=== PATIENT | female | born 1945 | race Hispanic/Latino ===

== ENCOUNTER 2017-09-01 16:21 | Inpatient (IN) | payer MEDICARE, MEDICAID ==
[2017-09-01 17:50] VITALS: BMI 48.4
--- NOTE | 2017-09-01 18:17 | C.PDOC ---
History Of Present Illness 72 y/o F sent from [facility] for further evaluation of intractible diarrhea. Patient states she has been having diarrhea for over 1 year. Patient denies fever, vomiting, or abdominal pain. Patient also notes rash to her back and skin fold areas. Denies tenderness to these areas. Time Seen by Provider: 09/01/17 16:42 Chief Complaint (Nursing): GI Problem Past Medical History Vital Signs: Last Vital Signs Temp 98.7 F 09/01/17 16:26 Pulse 69 09/01/17 16:26 Resp 18 09/01/17 16:26 BP 146/82 09/01/17 16:26 Pulse Ox 95 09/01/17 18:20 - Medical History PMH: COPD, Depression, Gastrointestinal Ulcer, HTN Family History: States: No Known Family Hx - Social History Hx Alcohol Use: No Hx Substance Use: No - Immunization History Hx Influenza Vaccination: No Hx Pneumococcal Vaccination: No Review Of Systems Except As Marked, All Systems Reviewed And Found Negative. Constitutional: Negative for: Fever Cardiovascular: Negative for: Chest Pain Physical Exam - Physical Exam Additional Physical Exam Comments: Gen: NAD Head: AT Eyes: PERRL ENT: MMM Neck: No midline tenderness Chest: No tenderness CV: Regular rate Lungs: CTA b/l Abd: Soft, nontender, morbid obesity Extremities: FROM Skin: Scatter erythematous papules and plaques to back and folds Neuro: Alert, no focal deficit ED Course And Treatment - Laboratory Results Result Diagrams: 09/01/17 18:29 O2 Sat by Pulse Oximetry: 95 Medical Decision Making Medical Decision Making: EKG NSR 74 bpm, no ST/T wave changes Dr. Montilla accepts patient to his service. Recommends Dr. Sharpe for GI consultation. When obtaining urine through straight catheterization, RN found patient to have vaginal bleeding, which patient states she knew she had but did not bring to attention of physician. Will check Hb. Vitals normal. In absence of , no emergent indication for further evaluation in ED, will defer to inpatient. Disposition Discussed With : Nasima Montilla Doctor Will See Patient In The: Hospital - Disposition Disposition: HOSPITALIZED Disposition Time: 18:55 Condition: FAIR Forms: [facility] (Greek) - Clinical Impression Clinical Impression: Intractable diarrhea, Rash, Vaginal bleeding
[2017-09-01 18:35] LABS: RBC URINE 199 /hpf (0-3); URINE BACTERIA FEW (<OCC); URINE BILIRUBIN NEGATIVE (NEGATIVE); URINE BLOOD 3+ (NEGATIVE); URINE COLOR Yellow (YELLOW); URINE GLUCOSE (UA) NORMAL (Normal); URINE KETONE NEGATIVE (NEGATIVE); URINE LEUKOCYTE ESTERASE 1+ Leu/uL (Negative); URINE PROTEIN 1+ mg/dL (NEGATIVE); URINE UROBILINOGEN NORMAL mg/dL (0.2-1.0); WBC URINE 18 /hpf (0-5)
[2017-09-01 18:43] LABS: BASO # 0.1 K/uL (0.0-0.2); BASO % 0.7 % (0.0-2.0); EOS # 0.6 K/uL (0.0-0.7); EOS % 5.3 % (0.0-4.0); HEMATOCRIT 39.2 % (34.0-47.0); LYMPH # 4.1 K/uL (1.0-4.3); MEAN PLATELET VOLUME 8.9 fL (7.2-11.7); MONO # 0.6 K/uL (0.0-0.8); RED CELL DISTRIBUTION WIDTH 15.9 % (11.5-14.5); WHITE BLOOD COUNT 11.8 K/uL (4.8-10.8)
[2017-09-01 19:04] LABS: ALB/GLOB RATIO 1.4 (1.0-2.1); ALKALINE PHOSPHATASE 89 U/L (38-126); ALT/SGPT 51 U/L (9-52); AST/SGOT 38 U/L (14-36); BILIRUBIN,TOTAL 0.6 mg/dL (0.2-1.3); BLOOD UREA NITROGEN 21 mg/dL (7-17); CALCIUM 8.6 mg/dl (8.6-10.4); CARBON DIOXIDE 28 mmol/L (22-30); CHLORIDE 99 mmol/L (98-107); GFR AFRICAN-AMERICAN > 60; GLUCOSE,RANDOM 138 mg/dL (65-105); SODIUM 135 mmol/L (132-148); TOTAL PROTEIN 7.1 g/dL (6.3-8.3)
[2017-09-01 20:52] VITALS: RESP 20
[2017-09-01] MEDS ORDERED: Atropine-Diphenoxylate 0.025-2.5 mg Tab PO PRN (21:16)
[2017-09-01] MEDS ORDERED: Home Med 1 UNIT (Oxycodone Hcl/Acetaminophen [Percocet 10-325 Mg Tablet] 1 EACH) PO PRN (21:17)
[2017-09-01 21:20] VITALS: O2SAT 95
[2017-09-01] MEDS ORDERED: Latanoprost 2.5 ml Opht Soln OU SCH (22:00)
[2017-09-01] MEDS: Oxycodone/Acetaminophen 5/325 mg Tab PO PRN (22:05)
[2017-09-01] MEDS: Sodium Chloride 0.45% 1,000 ML IV SCH (22:09)
[2017-09-02] MEDS: metroNIDAZOLE IV 500 mg/100 ml 500 MG/100 ML BAG IVPB SCH ×3 (00:32→14:28)
[2017-09-02] MEDS: Oxycodone/Acetaminophen 5/325 mg Tab PO PRN ×2 (05:51→17:35)
[2017-09-02 08:06] VITALS: PULSE 72
--- NOTE | 2017-09-02 08:41 | RAD ---
HISTORY: diarrhea COMPARISON: No prior. FINDINGS: LUNGS: Right central venous catheter tip extending to the cavoatrial junction. Mild venous congestion. Patchy increased markings at the lung bases. Focal opacification at the left lung base which may represent underlying atelectasis versus infiltrate versus prominent epicardial fat pad. Correlation with lateral view may be helpful. Right hilar prominence. PLEURA: As above. CARDIOVASCULAR: Enlarged ectatic aorta. Cardiomegaly. OSSEOUS STRUCTURES: Degenerative changes in the spine and shoulders. VISUALIZED UPPER ABDOMEN: Normal. OTHER FINDINGS: None. IMPRESSION: Right central venous catheter tip extending to the cavoatrial junction. Mild venous congestion. Patchy increased markings at the lung bases. Focal opacification at the left lung base which may represent underlying atelectasis versus infiltrate versus prominent epicardial fat pad. Correlation with lateral view may be helpful. Right hilar prominence.
[2017-09-02] MEDS ORDERED: Iohexol 240 (50 ml) PO ONE (08:45)
[2017-09-02] MEDS: Lactobacillus Acidophilus 500 MU Cap PO SCH ×3 (09:35→17:25)
[2017-09-02] MEDS: Sodium Chloride 0.45% 1,000 ML IV SCH (09:55)
[2017-09-02] MEDS ORDERED: Enoxaparin 40 mg Syringe SC SCH (10:00)
[2017-09-02] MEDS ORDERED: ACIDOPH PO SCH (10:00)
[2017-09-02] MEDS ORDERED: Acyclovir 5% Oint (15 gm) TOP SCH (10:00)
[2017-09-02] MEDS ORDERED: BULG PO SCH (10:00)
[2017-09-02] MEDS ORDERED: BIF B PO SCH (10:00)
[2017-09-02] MEDS ORDERED: Brimonidine 0.2% Opth Sol (5ml) OS SCH (10:00)
[2017-09-02] MEDS ORDERED: S THERMOP PO SCH (10:00)
[2017-09-02] MEDS ORDERED: Home Med 1 UNIT (Brimonidine 0.15% [Alphagan P 0.15% Opht] 1 DROP) AS SCH (10:00)
[2017-09-02 11:42] LABS: BASO # 0.1 K/uL (0.0-0.2); BASO % 0.7 % (0.0-2.0); EOS # 0.6 K/uL (0.0-0.7); EOS % 5.7 % (0.0-4.0); HEMATOCRIT 38.7 % (34.0-47.0); LYMPH # 2.7 K/uL (1.0-4.3); MEAN CELL VOLUME 74.2 fL (81.0-99.0); MEAN CORPUSCULAR HEMOGLOBIN 24.5 pg (27.0-31.0); MEAN PLATELET VOLUME 9.1 fL (7.2-11.7); MONO # 0.6 K/uL (0.0-0.8); MONO % 6.1 % (0.0-10.0); NRBC % 0.3 % (0.0-2.0); RED CELL DISTRIBUTION WIDTH 16.1 % (11.5-14.5); WHITE BLOOD COUNT 9.8 K/uL (4.8-10.8)
[2017-09-02 12:01] LABS: ALB/GLOB RATIO 1.1 (1.0-2.1); ALKALINE PHOSPHATASE 84 U/L (38-126); ALT/SGPT 48 U/L (9-52); AST/SGOT 46 U/L (14-36); BILIRUBIN,TOTAL 0.4 mg/dL (0.2-1.3); BLOOD UREA NITROGEN 18 mg/dL (7-17); CALCIUM 8.3 mg/dl (8.6-10.4); CARBON DIOXIDE 26 mmol/L (22-30); CHLORIDE 98 mmol/L (98-107); GFR AFRICAN-AMERICAN > 60; GLUCOSE,RANDOM 161 mg/dL (65-105); MAGNESIUM 1.4 mg/dL (1.6-2.3); PHOSPHOROUS 3.4 mg/dL (2.5-4.5); POTASSIUM 4.2 mmol/L (3.6-5.2); SODIUM 135 mmol/L (132-148); TOTAL PROTEIN 7.6 g/dL (6.3-8.3)
--- NOTE | 2017-09-02 13:34 | CP.PCM.PN ---
Subjective - Date & Time of Evaluation Date of Evaluation: 09/02/17 Time of Evaluation: 13:30 - Subjective Subjective: Progress note. Attending: Dr. Montilla This is a 72 yo female with past medical hx of anxiety and DM [facility] with chief complaint of diarrhea x 1 year. Pt has been having intractable diarrhea x 1 year. It has been non bloody. No fevers or chills. She is also reporting some vaginal bleeding. She cannot say for how long. Pt seen and examined at bedside today. No acute distress. Actually says her diarrhea has now resolved since being here. No fevers, chills, vomiting. PMH: Anxiety, DM PSH: C section, ex lap Allergies: PCN FH: Skin cancer, lung cancer Social hx: Denies smoking, drinking, drug use. Born in . Lives in [facility]. Objective - Vital Signs/Intake and Output Vital Signs (last 24 hours): Temp Pulse Resp BP Pulse Ox 98.1 F 72 20 134/83 95 09/02/17 08:04 09/02/17 08:04 09/02/17 08:04 09/02/17 08:04 09/02/17 08:04 Intake and Output: 09/02/17 09/02/17 06:59 18:59 Intake Total 730 Balance 730 - Medications Medications: Current Medications Acetaminophen (Tylenol 325mg Tab) 650 mg PO Q4 PRN PRN Reason: temp 101 & above/mild pain Acyclovir (Zovirax 5% Oint) 0 gm TOP DAILY [facility] Last Admin: 09/02/17 10:08 Dose: 1 applic Alprazolam (Xanax) 0.5 mg PO HS [facility] Last Admin: 09/01/17 22:04 Dose: 0.5 mg Baclofen (Lioresal) 10 mg PO TID [facility] Last Admin: 09/02/17 09:35 Dose: 10 mg Bisacodyl (Dulcolax) 10 mg PO ONCE ONE Stop: 09/02/17 17:01 Brimonidine Tartrate (Alphagan 0.2% Opht) 0 ml OS Q12 [facility] Last Admin: 09/02/17 09:52 Dose: 1 drop Diphenoxylate HCl/Atropine (Lomotil 0.025-2.5 Mg Tablet) 1 tab PO Q12 PRN PRN Reason: Diarrhea Enoxaparin Sodium (Lovenox) 40 mg SC DAILY [facility] Last Admin: 09/02/17 09:34 Dose: 40 mg Gabapentin (Neurontin) 300 mg PO HS [facility] Last Admin: 09/01/17 22:03 Dose: 300 mg Sodium Chloride (Sodium Chloride 0.45%) 1,000 mls @ 80 mls/hr IV .[id number] [facility] Last Admin: 09/02/17 09:55 Dose: Not Given Metronidazole (Flagyl) 500 mg in 100 mls @ 100 mls/hr IVPB Q8 [facility] Last Admin: 09/02/17 05:53 Dose: 100 mls/hr Lactobacillus Acidophilus (Bacid Acidophilus) 1 cap PO TID [facility] Last Admin: 09/02/17 09:35 Dose: 1 cap Latanoprost (Xalatan Opht) 0.05 ml OU HS [facility] Last Admin: 09/01/17 22:04 Dose: 0.05 ml Metformin HCl (Glucophage) 500 mg PO BID [facility] Last Admin: 09/02/17 09:34 Dose: 500 mg Metoclopramide HCl (Reglan) 5 mg IVP Q6 [facility] Last Admin: 09/02/17 12:29 Dose: 5 mg Oxycodone/Acetaminophen (Percocet 5/325 Mg Tab) 1 tab PO Q8 PRN PRN Reason: knee pain Last Admin: 09/02/17 05:51 Dose: 1 tab Pantoprazole Sodium (Protonix Inj) 40 mg IVP DAILY [facility] Last Admin: 09/02/17 09:34 Dose: 40 mg Pneumococcal Polyvalent Vaccine (Pneumovax 23 Vaccine) 0.5 ml IM .ONCE ONE Stop: 09/03/17 10:01 Polyethylene Glycol/Electrolytes (Golytely) 4,000 ml PO ONCE ONE Stop: 09/02/17 14:01 Sertraline HCl (Zoloft) 50 mg PO DAILY [facility] Last Admin: 09/02/17 09:34 Dose: 50 mg Ursodiol (Actigall) 300 mg PO BID [facility] Last Admin: 09/02/17 09:35 Dose: 300 mg - Labs Labs: 09/02/17 11:18 09/02/17 11:18 - Constitutional Appears: Non-toxic, No Acute Distress - Head Exam Head Exam: ATRAUMATIC, NORMAL INSPECTION, NORMOCEPHALIC - Eye Exam Eye Exam: EOMI - ENT Exam ENT Exam: Mucous Membranes Moist - Neck Exam Neck Exam: Full ROM, Normal Inspection - Respiratory Exam Respiratory Exam: NORMAL BREATHING PATTERN. absent: Respiratory Distress - Cardiovascular Exam Cardiovascular Exam: +S1, +S2 - GI/Abdominal Exam GI & Abdominal Exam: Hernia. absent: Guarding, Rigid - Extremities Exam Extremities Exam: Full ROM, Normal Inspection - Neurological Exam Neurological Exam: Alert, Awake, Oriented x3 - Psychiatric Exam Psychiatric exam: Normal Affect, Normal Mood - Skin Skin Exam: Dry, Intact, Normal Color, Warm Assessment and Plan - Assessment and Plan (Free Text) Assessment: This is a 72 yo female with past medical hx of anxiety and DM with 1. Diarrhea -stool ova and parasites -stool culture -stool leukocytes -stool c diff -continue tylenol -continue diphenoxylate 1 tab PO 12 -continue metronidazole 500 mg IV q 8 -ct scan of abdomen pelvis ordered and is pending -GI consult. Dr. Sharpe. recs appreciated. -continue reglan IV q 6 hrs prn nausea. 2. Vaginal bleeding -post menopausal -[employer] consult. recs appreciated. Dr. Simpson 3. Hx of anxiety/depression. -continue xanax .5 PO HS -continue sertraline 50 mg daily 4. hx of DM -continue gabapentin 300 PO HS -continue metformin 500 PO BID 5. GI/DVT ppx -lovenox -protonix [address] Montilla
[2017-09-02] MEDS ORDERED: Peg-Electrolyte Oral Soln 4L (Golytely) PO ONE (14:00)
--- NOTE | 2017-09-02 16:14 | CP.PCM.PN ---
Subjective - Date & Time of Evaluation Date of Evaluation: 09/02/17 Time of Evaluation: 16:14 - Subjective Subjective: Alert, orientedx3, denies abdominal pain or any acute distress. Objective - Vital Signs/Intake and Output Vital Signs (last 24 hours): Temp Pulse Resp BP Pulse Ox 98.1 F 72 20 134/83 95 09/02/17 08:04 09/02/17 08:04 09/02/17 08:04 09/02/17 08:04 09/02/17 08:04 Intake and Output: 09/02/17 09/02/17 06:59 18:59 Intake Total 730 1180 Balance 730 1180 - Medications Medications: Current Medications Acetaminophen (Tylenol 325mg Tab) 650 mg PO Q4 PRN PRN Reason: temp 101 & above/mild pain Acyclovir (Zovirax 5% Oint) 0 gm TOP DAILY [facility] Last Admin: 09/02/17 10:08 Dose: 1 applic Alprazolam (Xanax) 0.5 mg PO HS [facility] Last Admin: 09/01/17 22:04 Dose: 0.5 mg Baclofen (Lioresal) 10 mg PO TID [facility] Last Admin: 09/02/17 14:28 Dose: 10 mg Bisacodyl (Dulcolax) 10 mg PO ONCE ONE Stop: 09/02/17 17:01 Brimonidine Tartrate (Alphagan 0.2% Opht) 0 ml OS Q12 [facility] Last Admin: 09/02/17 09:52 Dose: 1 drop Diphenoxylate HCl/Atropine (Lomotil 0.025-2.5 Mg Tablet) 1 tab PO Q12 PRN PRN Reason: Diarrhea Enoxaparin Sodium (Lovenox) 40 mg SC DAILY [facility] Last Admin: 09/02/17 09:34 Dose: 40 mg Gabapentin (Neurontin) 300 mg PO HS [facility] Last Admin: 09/01/17 22:03 Dose: 300 mg Sodium Chloride (Sodium Chloride 0.45%) 1,000 mls @ 80 mls/hr IV .[id number] [facility] Last Admin: 09/02/17 09:55 Dose: Not Given Metronidazole (Flagyl) 500 mg in 100 mls @ 100 mls/hr IVPB Q8 [facility] Last Admin: 09/02/17 14:28 Dose: 100 mls/hr Lactobacillus Acidophilus (Bacid Acidophilus) 1 cap PO TID [facility] Last Admin: 09/02/17 14:28 Dose: 1 cap Latanoprost (Xalatan Opht) 0.05 ml OU HS [facility] Last Admin: 09/01/17 22:04 Dose: 0.05 ml Metformin HCl (Glucophage) 500 mg PO BID [facility] Last Admin: 09/02/17 09:34 Dose: 500 mg Metoclopramide HCl (Reglan) 5 mg IVP Q6 [facility] Last Admin: 09/02/17 12:29 Dose: 5 mg Oxycodone/Acetaminophen (Percocet 5/325 Mg Tab) 1 tab PO Q8 PRN PRN Reason: knee pain Last Admin: 09/02/17 05:51 Dose: 1 tab Pantoprazole Sodium (Protonix Inj) 40 mg IVP DAILY [facility] Last Admin: 09/02/17 09:34 Dose: 40 mg Pneumococcal Polyvalent Vaccine (Pneumovax 23 Vaccine) 0.5 ml IM .ONCE ONE Stop: 09/03/17 10:01 Sertraline HCl (Zoloft) 50 mg PO DAILY [facility] Last Admin: 09/02/17 09:34 Dose: 50 mg Ursodiol (Actigall) 300 mg PO BID [facility] Last Admin: 09/02/17 09:35 Dose: 300 mg - Labs Labs: 09/02/17 11:18 09/02/17 11:18 Assessment and Plan - Assessment and Plan (Free Text) Assessment: 72 year old obese female with multiple complaints, seen and examined. She expressed that she do not want colonoscopy done as advised by DR Sharpe. No acute pain vomiting or distress. D/W DR Montilla, plan to discharge back to [facility] as per patient request. Added lomotil prn for diarrhea.
[2017-09-02 16:46] VITALS: BP 155/63; TEMP 98.5
[2017-09-02] MEDS ORDERED: Bisacodyl 5mg EC Tab PO ONE (17:00)
--- NOTE | 2017-09-02 17:52 | PN ---
LOCATION: [facility], bed B. SUBJECTIVE: This is 72-year-old female, seen and examined for GI consultation initially on 09/01/2017 as requested by the admitting medical team. Reexamined again today with intermittent period of rectal bleeding verses, less likely vaginal bleeding. The patient is not sure about the source of active bleeding with episode of crampy abdominal pain and dyspepsia with recurrent severe diarrhea. No reported chest pain, palpitation or significant other clinical changes. Initially, the patient was examined for upper and lower endoscopy then she changed her mind and she is refusing EGD and colonoscopy. The entire chart is reviewed including but not limited to the most recent lab and radiology study results, current and previous medication lists, current and previous medical events and today's labs showed normal CBC with increased BUN 18 but normal creatinine. Blood glucose level 151 with low calcium 8.3, low magnesium 1.4 with mildly elevated AST. No CAT scan report yet as the patient refused to finish the contrast intake. Yesterday's chest x-ray report is seen. PHYSICAL EXAMINATION: GENERAL: A 72-year-old female, awake, alert, oriented, afebrile with pulse of 70, respiratory rate of 20 to 20, blood pressure 148/60. HEENT: Showed pale, dry oral mucoid membrane. Nonicteric sclerae. LUNGS: Few scattered crepitation. Decreased air entry at bases. HEART: Positive S1 and S2. ABDOMEN: Soft with mild distension and generalized tenderness. No mass or organomegaly and no rebound tenderness or guarding. RECTAL: The patient refused. EXTREMITIES: Without significant clubbing or cyanosis but mild lower extremity edematous changes. NEUROLOGIC: No new reported neurological deficits, sensory or motor. IMPRESSION: 1. Diarrhea of unclear etiology that could be infectious diarrhea verses mechanical diarrhea, to rule out pseudomembranous colitis, to rule out diverticulosis, inducing diarrhea. 2. Known history of but not limited to peptic ulcer disease with gastric ulcer, hypertension, depression with COPD. 3. Electrolyte imbalance with hypomagnesemia. SUGGESTIONS: 1. Agree with your plan. 2. Cancer markers. 3. Proton-pump inhibitors. 4. Complete stool workup. 5. Further recommendation to follow. Again the patient is refusing any endoscopic evaluation of the GI tract. Rosey Julien MD cc: Rosey Julien MD
--- NOTE | 2017-09-02 22:19 | CARD ---
APPROVED REPORT EKG Measurement Heart [id number] <Conclusion> Normal sinus rhythm Cannot rule out Anterior infarct, age undetermined Abnormal ECG
--- NOTE | 2017-09-03 09:24 | HP ---
HISTORY OF PRESENT ILLNESS: Ms. Morgan is admitted to the hospital with chief complaint of intractable diarrhea, vaginal bleeding, and vaginal rash. The patient has been having diarrhea, had workup done as an outpatient, however, the patient persisted to have diarrhea, placed on the Imodium , and patient has diabetes. PHYSICAL EXAMINATION: GENERAL: The patient is awake, alert, oriented, obese. VITAL SIGNS: Temperature 98, pulse 90. HEENT: Within normal limits. NECK: Supple. CHEST: Symmetrical. HEART: Regular. ABDOMEN: Soft. EXTREMITIES: No edema. IMPRESSION: Intractable diarrhea, colitis. The patient on bedrest, IV fluids, GI consult, OB-DIRECTOR OF MANAGED CARE consult. Nasima Montilla MD
[2017-09-03] MEDS ORDERED: Pneumococcal 23-Valent Vaccine IM ONE (10:00)
--- NOTE | 2017-09-04 01:20 | CON ---
DATE: 09/01/[address] Jul[address] Dr. Nasima Montilla. I was called for GI consultation by the admitting medical team. The patient is seen and fully examined on 09/01/2017, as requested by Dr. Montilla. The entire chart is reviewed including, but not limited to the most recent lab and radiology study results, current and previous medication list, current and previous medical records, allergy to medication list as well as all the available current and previous medical records. Case discussed at length with the staff in the floor. HISTORY OF PRESENT ILLNESS: This is a 72-year-old female, a case for me from previous admission, was admitted to the hospital due to severe diarrhea, dyspepsia with nausea on and off. It was reported rectal versus vaginal bleeding as per patient's statement. The patient also had intermittent periods of abdominal discomfort, postprandial abdominal distention, skin rash appears after physical examination to be tinea versicolor by my examination. PAST MEDICAL HISTORY: Including but not limited to, 1. GI bleeding. 2. Gastric ulcer. 3. Hypertension. 4. Obesity. 5. Depression. 6. COPD. CURRENT MEDICATIONS: Medication list was reviewed. FAMILY HISTORY: Unknown. SOCIAL HISTORY: No known recent history of cigarette smoking or alcohol intake. ALLERGIES TO MEDICATIONS: UNCLEAR. After being admitted to the hospital, the patient initially was found to have leukocytosis of 11.8, but normal hemoglobin and hematocrit. PHYSICAL EXAMINATION GENERAL: A 72-year-old female appeared to be awake, alert, and oriented. VITAL SIGNS: Afebrile with pulse of 72, respiratory rate 18 to 20 with blood pressure of 140/80. HEENT: Showed dry oral mucous membrane. Nonicteric sclerae. LYMPH NODES: No lymphadenitis or lymphadenopathy. LUNGS: Few scattered crepitation with decreased air entry at the bases. HEART: Positive S1 and S2. ABDOMEN: Soft with mild distention with generalized tenderness. No mass or organomegaly. No rebound tenderness or guarding. RECTAL: The patient refused. EXTREMITIES: With lower extremity mild edematous changes. No clubbing or cyanosis. NEUROLOGIC: No reported new neurological deficits, sensory or motor. IMPRESSION: 1. Diarrhea of unclear etiology, the possibility of infectious diarrhea versus mechanical diarrhea and osmotic diarrhea to be ruled in or out. 2. Reported rectal bleeding versus vaginal bleeding of unclear etiology. 3. Re-exacerbation of peptic ulcer disease. 4. Known history of gastric ulcer, depression, hypertension with chronic obstructive pulmonary disease. SUGGESTION: 1. Agree with your plan. 2. Cancer markers. 3. Proton pump inhibitors. 4. Flagyl IV. 5. Complete stool analysis. 6. Vancomycin p.o. 7. Creon 24,000 units p.o. three times a day with meals and no milk or dairy products, no citrus and no seeds. 8. Further recommendation to follow both upper and lower endoscopy. Thank you for letting me to participate in your patient's case management. Rosey Julien MD
[2017-09-04] MEDS ORDERED: Influenza Vaccine 60 mcg/0.5 mL SYR (4YR UP) IM ONE (10:00)
== END 2017-09-02 21:50 | DRG 392 ==
LOC: C.ER 16:21 → C.9E 18:55 → C.3T 20:37
PROVIDERS: ADMIT Internal Medicine Pulmonary Disease; ATTEND Internal Medicine Pulmonary Disease
DX: K52.9 Noninfective gastroenteritis and colitis, unspecified (principal); E11.9 Type 2 diabetes mellitus without complications; J44.9 Chronic obstructive pulmonary disease, unspecified; Z68.42 Body mass index [BMI] 45.0-49.9, adult; B36.0 Pityriasis versicolor; I10 Essential (primary) hypertension; K27.9 Peptic ulcer, site unspecified, unspecified as acute or chronic, without hemorrhage or perforation; E83.42 Hypomagnesemia; F41.9 Anxiety disorder, unspecified; F32.9 Major depressive disorder, single episode, unspecified; E66.9 Obesity, unspecified; Z79.899 Other long term (current) drug therapy; Z53.29 Procedure and treatment not carried out because of patient's decision for other reasons